=== PATIENT | female | born 1975 | race African-American/Black ===

== ENCOUNTER 2019-09-17 17:47 | Emergency (ER) | payer OTHER ==
[~2019-09-17] VITALS: Ht 167.6 cm; Wt 142.9 kg
[~2019-09-17 17:47] MED LIST: NOHOMEMEDICATIONS; NORCO 5-325 TA1 EACH PO
[2019-09-17] MEDS ORDERED: IBUPROFEN 800800 M1 PO (19:42)
[2019-09-17] MEDS ORDERED: NORFLEX100 MG PO (19:42)
[2019-09-17 19:54] VITALS: BP 128/79
== END 2019-09-17 19:57 | disposition home or self-care (01) ==
LOC: ER 17:47
DX: S83.91XA Sprain of unspecified site of right knee, initial encounter (principal); S39.012A Strain of muscle, fascia and tendon of lower back, initial encounter; E66.01 Morbid (severe) obesity due to excess calories; V89.2XXA Person injured in unspecified motor-vehicle accident, traffic, initial encounter; Y93.I9 Activity, other involving external motion; Y92.488 Other paved roadways as the place of occurrence of the external cause; Y99.8 Other external cause status